=== PATIENT | male | born 1955 | race Caucasian/White ===

== ENCOUNTER 2021-12-07 09:00 | Outpatient (RCR) | payer MEDICARE, BC, SELFPAY ==
--- NOTE | 2021-11-23 10:40 | PT.OPDNX ---
PT [place] Out[facility] Daily Note PT [facility] Outpatient Daily Note Start: 11/23/21 07:57 Freq: Status: Active Protocol: Document 11/23/21 07:58 ASHLEY (Rec: 11/23/21 08:07 NMK [id number]) E-Signed By Laureano Simpson DPT PT OP Daily Progress Note Visit Information Note Type Daily Note,Recert/Progress Note Visit Number [id number] Insurance Information Recert Due Date 12/01/21 Insurance Name Medicare B Medical Diagnosis L shoulder arthroscopic RCR revision following prior full open RCR Treating Diagnosis Decreased shoulder ROM; Decreased shoulder strength; Shoulder weakness; Shoulder effusion Referring Nader Rodriguez MD Subjective Subjective He reports the progress has been slow with the strengthening. He does have some achiness and soreness at this time but denies pain. He is doing his exercises every other day. He reports they are slowly getting easier. Overall he reports he is seeing good progress with strength and ROM, and having minimal pain at this time. Precautions Treatment Precautions/Contraindications PROM starting now, AAROM 4-6 weeks post op. No active range of motion until 8-10 weeks postop. No lifting operative extremity beyond coffee cup in weight. Home Exercise Home Exercise Comments [email or web address] access code: [email or web address] Objective Other/Pertinent Objective ROM w. dowel in standing Shoulder flexion: 140 degrees Shoulder abduction: 125 degrees Shoulder ER: 55 degrees AROM Shoulder flexion: 114 degrees (140 degrees after shoulder flexion wall stretch) Shoulder abduction: 115 degrees Shoulder ER: 70 degrees Patient Instructed in Risks/Benefits Yes Therapeutic Exercise Therapeutic Exercise Minutes (minutes) 45 Therapeutic Exercise: To Restore -Recumbent bike x5 minutes; Functional Status Medium resistance -Standing shoulder flexion w. 2 lb DB 2x8-12 -Standing lateral raise w. 1 lb DB 2x8-12 -Scaption raises w. 1-2 lb DB 2x8-12 -Banded shoulder extension 2x12 -Banded ER 2x12 w. orange tube band -Banded IR 2x12 w. orange tube band -Crista's: scaption, abduction , flexion x5 minutes -HEP prep and review Treatment Minutes Timed Code Treatment Minutes 45 Total Treatment Time 45 Assessment/Impression Assessment/Impression Pt continues to show reduced strength and ROM in his L shoulder compared to R shoulder at this time but is making steady progress towards his current goals. He has not achieved his PT goals at this time. In session, he continues to show good response to ROM and strengthening exercises, showing improved overhead ROM from pre to post ROM exercises . He continues to be diligent with his HEP at this time, but requires progression of these exercises from week to week. He will greatly benefit from continued skilled PT services in order to achieve PLOF goals as outlined in PT plan of care. Plan of Care Physical Therapy Goals Short term goals to completed in 4 weeks: 1. Pt will display improved shoulder flex and ABD passive ROM >160 deg to progress to active and active assist ROM phase of rehab. 2. Pt will report waking up fewer than 2 times per night to show improved quality of sleep Long-term goals to be completed in 16 weeks: 1. Pt will be independent and compliant with HEP to self manage condition after discharge 2. Pt will display improved shoulder ABD, flex, ER and IR strength of >4/5 to lift objects into overhead cabinets . 3. Pt will display improved shoulder flex and ABD AROM > 160 deg to don/doff overhead shirts. 4. Pt will report >75% improvement in SPADI questionnaire to significantly improve tolerance to daily activities Daily Plan of Care Continue per POC Daily Plan of Care Comments Begin strengthening Continue with ROM Recertification Information Clinical Certification # #[id number] Patient's H.I.C.N.# # Initial Certification Date 12/01/21 Most Recent Visit 11/23/21 Recertification Start Date 12/01/21 Recertification Due Date 03/03/22 Reasons to Continue Skilled Therapy Pt continues to show reduced strength and ROM in his L shoulder compared to R shoulder at this time but is making steady progress towards his current goals. He has not achieved his PT goals at this time. In session, he continues to show good response to ROM and strengthening exercises, showing improved overhead ROM from pre to post ROM exercises . He continues to be diligent with his HEP at this time, but requires progression of these exercises from week to week. He will greatly benefit from continued skilled PT services in order to achieve PLOF goals as outlined in PT plan of care. Rehabilitation Potential Good. Continued Plan of Care and Interventions Continued Strengthening and progression of ROM exercises I Certify That I Have Established All Therapy Services/Plan Therapist Signature & License Number Laureano Calvin[place] DPT [id number] Physician Signature Shows Agreement Dates & Medical Necessity Physician Comment/Change Comment or Changes Physician Signature & Date Please Sign/Date Here Physician NPI Number #
== END 2022-02-06 14:11 | disposition home or self-care (01) ==
PROVIDERS: Visit Provider Physician Assistant Surgical
DX: M25.512 Pain in left shoulder (principal)
CPT/HCPCS: 97110

== ENCOUNTER 2021-12-09 09:08 | Outpatient (CLI) | payer MEDICARE, BC, SELFPAY | END 2021-12-09 09:09 | disposition home or self-care (01) | LOC: NFLDREF 09:11 | PROVIDERS: Visit Provider Family Medicine | DX: Z00.00 Encounter for general adult medical examination without abnormal findings (principal); E78.5 Hyperlipidemia, unspecified; R53.83 Other fatigue | CPT/HCPCS: 84443 ==

== ENCOUNTER 2021-12-23 08:51 | Outpatient (CLI) | payer MEDICARE, BC, SELFPAY | END 2021-12-23 08:52 | disposition home or self-care (01) | LOC: RAD 08:52 | PROVIDERS: PCP Family Medicine; Visit Provider Family Medicine | DX: R01.1 Cardiac murmur, unspecified (principal); I34.0 Nonrheumatic mitral (valve) insufficiency | CPT/HCPCS: 93306; 93320; 93325 ==

== ENCOUNTER 2022-05-12 10:09 | Outpatient (CLI) | payer MEDICARE, BC, SELFPAY ==
[2022-05-12 11:10] LABS: Chloride* 107 mmol/L (96-114); Potassium* 4.7 mmol/L (3.6-5.1); Sodium* 140 mmol/L (135-149)
[2022-05-12 11:13] LABS: Blood Urea Nitrogen* 21 mg/dL (7-30); Carbon Dioxide* 25 mmol/L (20-32); Creatinine* 1.1 mg/dL (0.5-1.5); Estimated Glomerular Filt Rate 73 ml/min; Glucose* 97 mg/dL (60-115)
[2022-05-12 11:14] LABS: Calcium* 9.9 mg/dL (8.4-10.6)
== END 2022-05-12 10:10 | disposition home or self-care (01) ==
LOC: NFLDREF 10:10
PROVIDERS: PCP Family Medicine; Visit Provider Family Medicine
DX: Z01.818 Encounter for other preprocedural examination (principal)
CPT/HCPCS: 80048

== ENCOUNTER 2022-05-31 07:21 | Day surgery (SDC) | payer MEDICARE, BC, SELFPAY ==
[2022-05-31] VITALS (21 sets, daily range): BP systolic 74–132; BP diastolic 40–98; PULSE 62–93; RESP 14–20; TEMP 36–36.8; O2SAT 88–94; BMI 31.9
[2022-05-31] MEDS: LACTATED RINGERS 1000 ML 1,000 ML 100 ML IV ×2 (08:05→12:18)
[2022-05-31] MEDS: SODIUM CHLORIDE 0.9 % (FLUSH) 10 ML SYRINGE IVF (08:05)
--- NOTE | 2022-05-31 08:28 | SUR.PREOP ---
TIME?OUT:?0828 PT/RN/MDA?VERIFICATION?OF?SURGICAL?SITE,?PROCEDURE,?AND?CONSENT OBTAINED?PRIOR?TO?INVASIVE?PROCEDURE.
[2022-05-31] MEDS: MIDAZOLAM HCL 1 MG/ML inj IVP (08:30)
[2022-05-31] MEDS: fentaNYL 100 MCG/2 ML inj IVP (08:30)
[2022-05-31] MEDS: EPINEPHrine 1 MG in SODIUM CHLORIDE IRRIG SOLUTION 3,000 ML 9003 MG IRRIGATION ×6 (09:27→11:09)
--- NOTE | 2022-05-31 11:28 | P.ORPRC_ITS ---
Procedure Note Date of procedure: 05/31/22 Procedure: PREOPERATIVE DIAGNOSES: 1. Right shoulder chronic, retracted, irrepairable rotator cuff tear, massive (supraspinatus and infraspinatus both with moderate-severe fatty atrophy - Goutallier grade III) 2. Right shoulder subscapularis rotator cuff tear with retraction, chronic 3. Right shoulder anterior and superior labral degenerative fraying and tearing 4. Right shoulder long head of biceps high-grade partial-thickness tearing 5. Right shoulder grade 3 anterior superior glenoid with small chondral flaps (measuring 6 mm in diameter) POSTOPERATIVE DIAGNOSES: 1. Right shoulder chronic, retracted, irrepairable rotator cuff tear, massive (supraspinatus and infraspinatus both with moderate-severe fatty atrophy - Goutallier grade III) 2. Right shoulder subscapularis rotator cuff tear with retraction, chronic 3. Right shoulder anterior and superior labral degenerative fraying and tearing 4. Right shoulder long head of biceps high-grade partial-thickness tearing 5. Right shoulder grade 3 anterior superior glenoid with small chondral flaps ( measuring 6 mm in diameter) NAME OF OPERATION: 1. Right shoulder arthroscopic rotator cuff repair. 2. Right shoulder arthroscopic Superior Capsular Reconstruction (Bankart repair/reconstruction) - modifier 22 due to extensive capsular disruption involving the entire anterior, superior, and posterior glenohumeral joint (superior capsular reconstruction with allograft tissue). 3. Right shoulder arthroscopic extensive glenohumeral debridement 4. Right shoulder arthroscopic lysis of adhesions SURGEON: Nader Sifuentes MD GLASS CLEANING MACHINE TENDER: Marco Michael PA-C; Of note, a skilled nurse assistant was critical for this case to aide in patient positioning, arm positioning, suture manipulation, graft preparation, instrument positioning, and closure. ANESTHESIA: General plus preoperative supraclavicular block. EBL: Less than 50 mL IMPLANTS: Arthrex 1.8 mm knotless fiber tack (x3) - glenoid fixation [2.6 mm FiberTak RC 0 (x3)-humeral head medial row fixation 5.5 mm BioComposite SwiveLock suture anchor (x2) - humeral head lateral row fixation 3 mm thick dermal matrix allograft for the SCR COMPLICATIONS: None evident INDICATIONS: The patient is a pleasant, 67-year-old male who remains very active individual. They sustained a right shoulder injury in the remote past. The patient has had a history of right shoulder subacromial decompression distal clavicle excision in the remote past as well. Unfortunately, they continued to have significant dysfunction with daily life. Pain, weakness, and dysfunction were part of their daily recreational and occupational activities. Workup inc luded physical exam and MRI which revealed full-thickness supraspinatus and infraspinatus rotator cuff tear with retraction medial to the glenoid and notable muscle fatty atrophy. There is also was subscapularis tear. Given the atrophy, it was not felt that a rotator cuff repair would be viable. As the patient's age is still relatively young and the remain rather active, it was felt that a reverse shoulder replacement would not be prudent. Thus, decision was made for superior capsular reconstruction with allograft. Risks, benefits, alternatives were discussed in great detail. I believe all questions were answered. Surgery was indicated accordingly. FINDINGS: Exam under anesthesia revealed stable shoulder with excellent range of motion. The diagnostic arthroscopy revealed [grade 3 chondromalacia anterior superior glenoid as noted above. The Subscapularis tendon was torn broadly with retraction medial to the coracoid. The long head of the biceps tendon was torn and high-grade partial-thickness manner through the intra-articular portion. The superior rotator cuff tendon was found to be torn full-thickness with retraction medial to the glenoid. The labrum was degeneratively frayed in the anterior and superior aspects. No loose bodies were identified within the pouch and/or subscapularis recess. PROCEDURE: Following a thorough discussion of risks, benefits, and a lternatives, consent was obtained and the left shoulder was marked. The patient was brought to the operating room and placed supine on the operating table. Induction of anesthesia was completed after preoperative supraclavicular block was administered in preop holding. Appropriate time out was performed identifying proper patient, site, and procedure. 2 g IV Ancef was administered within 1 hour of incision preoperatively. The right upper extremity was prepped and draped in the appropriate sterile fashion using ChloraPrep prep. This was after the patient was positioned in the beach chair with their head in neutral alignment and all bony prominences well padded. The shoulder was insufflated with 20mL of normal saline via an 18g spinal needle from a posterior approach. An 11 blade skin incision allowed a blunt trochar to be inserted and diagnostic arthroscopy to be performed with the findings as noted above. An anterior portal was established with an outside in technique. This allowed the probe to be inserted and confirm the diagnostic arthroscopic findings. Additionally, the superior rotator cuff and anterior/superior/posterior capsule was manipulated and mobilization assessed to learn if capsule repair/rotator cuff repair could be possible. This was not possible despite extensive lysis of adhesions. The shaver was then inserted and allowed extensive glenohumeral debridement distinctly separate and different from the lysis of adhesions that was previously performed to help mobilize the subscapularis rotator cuff tissue and to assess the superior rotator cuff tissues excursion. The debridement of anterior, superior, and posterior superior labrum as well of the humeral head and glenoid articular tissue was also debrided along with the biceps stump. Finally rotator cuff stump tissue on the humeral head and on the superior and posterior glenoid was completed. 45 min was spent debriding the shoulder preparing it for the superior capsular reconstruction and rotator cuff repair. Following this, a decision was made to avoid any further SAD/Distal Clavicle Excision given the risk for anterior superior escape should this fail. This has previously been performed and was felt to be adequate. Additionally, there is a risk for the patient's anterior superior escape without rotator cuff tissue/capsular tissue. As attempted mobilization of the capsular tissue proved repair was not feasible, a decision was made for the superior capsular reconstruction with marginal convergence to the infraspinatus and subscapularis remnant tissue that could be captured. Using an all-arthroscopic technique, suture anchors were placed along the superior border of the glenoid including the posterior superior, direct superior, and anterosuperior (base of the coracoid). This had excellent purchase in strength of the anchors. Following this, 3 medial row anchors were placed along the humeral head given the breath of the tear from the subscapularis all way back to the teres minor. Suture management was critical during this stage requiring multiple assistance to help with visualization, suture management, graft preparation, and shoulder manipulation. A dermal allograft was fashioned on the back table and cut after making the appropriate measurements from anchor to anchor. 5 mm extra was left along the medial, anterior, and posterior borders, and 12 mm extra was left along the lateral border for eventual footprint compression against the greater tuberosity with the double row repair. The graft was taken to the operative field and suture limbs from the previously inserted anchors were retrieved through single lateral cannula. 1st, the medial row humeral head anchors were passed along the lateral portion of the graft, followed by the glenoid anchors passed along the medial row with the scorpion in a horizontal mattress fashion. These were then shuttled and cinched down with the graft being pulled into the shoulder joint. A [place] was also utilized to help push the graft in not relying purely on the sutures for pulling. Tension was taken out of the sutures and completion of the medial fixation was confirmed. After spreading of the graft in the subacromial space, the subscapularis anchor eyelet sutures were passed through the anterior portion the graft to provide marginal convergence. Likewise, posterior marginal convergence sutures were passed through any remnant infraspinatus/teres minor tissue. Thereafter, the lateral row anchors had the fiber tapes divided and 1 from each anchor was then passed. Likewise, a tail from each of the tapes in the medial row were passed through an anterolateral anchor with excellent securing the of the dermal allograft. The superior capsular tissue was restored with this allograft, and reduction of the superior subluxation of the humeral head achieved. In fact, axial load to the humerus was performed with an appropriate trampoline effect helping reduce/stabilize the humeral head. Of note, Prior to anchor route driver salesperson removal, the eyelet sutures were tugged on for each anchor and found that the anchor had excellent stability within the bone. Finally, marginal convergence suture was placed repairing the anterior rotator interval tissue/rotator cuff remnant tissue to the anterior edge of the dermal allograft. The shoulder was placed through range of motion and found to be stable. The rotator cuff and capsular allograft tissue was re-probed and found to be stable. Instruments were removed. Excess fluid was drained, closure performed with 4- 0 Monocryl and Steri-Strips. Dressings were applied. Sling was applied. The patient was awoken from anesthesia and transferred to the PACU in stable condition. A skilled nurse assistant was critical for this case to aid in patient positioning, limb positioning, skill to manipulate arthroscopic instruments and camera, suture management, patient safety, and closure. PLAN: 1. Elbow, forearm, wrist and digit range of motion as tolerated. 2. Encouraged ice. 3. Percocet for pain as needed. 4. Sling at all times except for ROM and showering. 5. Follow up with PA visit in 1-2 weeks for wound check. Initiate physical therapy following that visit for passive range of motion. Initiate active assisted range of motion at 4-6 weeks. PT will be a slow, long process allowing time for the graft to incorporate into the bone. May do pendulums now. Again, this procedure was much more than just a typical rotator cuff repair or Bankart repair. Instead, it required extensive glenohumeral debridement, lysis of adhesions, allograft preparation, 3 glenoid anchors and 5 humerus anchors due to the breath of pathology, and given the multiple sutures, multiple assistants were also necessary to help with management. 33% added difficulty for this case due to the above factors.
--- NOTE | 2022-05-31 12:54 | W.ANESCHARGE ---
Anesthesia Charges Start Date/Time Anesthesia Start Date: 05/31/22 Anesthesia Start Time: 08:45 Stop Date/Time Anesthesia Stop Date: 05/31/22 Anesthesia Stop Time: 11:37 Summary Emergency: No
--- NOTE | 2022-05-31 13:09 | P.NB_ITS ---
Nerve Block Nerve Block Time Seen by Provider: 07:45 Date Seen: 05/31/22 Type of block requested by surgeon for post-operative analgesia: supraclavicular Side: right Time out performed: Yes Verification of patient name: Yes Verification of date of : Yes Site marking: site marked Name of person performing procedure: ken Continuous monitoring Was continuous monitoring of O2 sat, B/P, nurse monitoring, recorded every 15 minutes?: Yes Procedure Checklist: sterile prep, needles and gloves Ultrasound guided. Images saved: Yes Medications given in 5ml increments after negative aspiration: Ropivicaine %: 0.5 mL: 20 Needle gauge: 20 Decadron (mg): 10 Precedex (mcg): 25 Patient tolerated procedure well: Yes Block Charges Block Charge (with Pro Fee): Brachial Plexus Use of Ultrasound Machine for Block: Yes- US Guidance/pain block
== END 2022-05-31 14:45 | disposition home or self-care (01) ==
PROVIDERS: PCP Family Medicine; Visit Provider Orthopaedic Surgery Sports Medicine
PROC: (CPT 29805; principal; 2022-05-31 08:30)
DX: M75.121 Complete rotator cuff tear or rupture of right shoulder, not specified as traumatic (principal); S46.111A Strain of muscle, fascia and tendon of long head of biceps, right arm, initial encounter; S43.431A Superior glenoid labrum lesion of right shoulder, initial encounter
CPT/HCPCS: 29827; 29806; 29823; 29825; 01630; 64415; 76942; C1713; C1781; J0171; J0330; J1100; J2250; J2370; J2405; J2704; J2795; J3010; J3490; J7120; L3670

== ENCOUNTER 2022-09-13 09:15 | Outpatient (RCR) | payer MEDICARE, BC, SELFPAY ==
--- NOTE | 2022-06-14 08:17 | PT.OPEX ---
PT [place] Outpatient Eval PT [facility] Outpatient Eval Start: 06/14/22 07:08 Freq: Status: Active Protocol: Document 06/14/22 07:11 BASSAM (Rec: 06/14/22 08:10 BASSAM [id number]) E-signed By Lakshmi Lugo PT Physical Therapy Outpatient Evaluation Insurance Information Recert Due Date 09/08/22 Insurance Name Medicare B Medical Diagnosis Rt RCR 05/31/22 Treating Diagnosis Rt shoulder/UE weakness, impaired mobility, pain Reduced ease of self cares and ADL's Referring MD Dr Nader Sifuentes Subjective Subjective Jordy reports having his shoulder repaired twice on both sides. This is his 4th surgery. He states the surgery went well. Client states he has had initially work injuries starting his deficits on Rt side, unsure of Lt side - overuse possibly.His Rt shoulder had been bothering him intermittently, and progressively worse, for the past 3 years. Right now, P/O, it feels more like just a discomfort. He has been using ice 24/ for the first 3 days, now just 3X/Day (advised to increase to 6 times). Sleeping is good already. In a chair for the first 4 days, in bed last night and actually was not bad. As far as medication, taking 2 aleve in the morning , no longer taking any other pain meds. Denies BISHOP, denies N /T into arm. Sometimes in the sling, my hand gets numb. Does not last. Appetite back to normal, some constipation initially, but back to normal/ good now. Pain Comments very low/tolerable. Date of Last Physician Visit 05/31/22 Current Work Status Retired Occupation Retired from farming, driving truck, [employer]. Preferred Name Yashira Precautions Treatment Precautions/Contraindications Heart [place] prior Rt knee menisectomy total of 4 shoulder surgeries Arthritis Therapy Limitations/Systems Review Vision,Hearing Objective Range of Motion Rt involved shoulder AROM is not allowed per p/o protocal until 5-6 weeks post op Rt involved PROM is : FF 0-110 / ABD 0-92 / ER 0-56 / Strength NA per post op restrictions. Lifting restriction of no more than a coffee cup at waist/ chest level Swelling Low to moderate. He has been icing Palpation Generalized tenderness Full Rt shoulder Balance & Gait Rt arm in a sling at arrival to clinic Posture Slight Rt shoulder elevation and gaurded posture Other/Pertinent Objective CX AROM is WNL, some pain with end range ROT Assessment Assessment/Impression 67 yo male with DX of Rt RCR completed on 05/31/22. He is restricted, per referral, to lifting no more than 1-2# - the weight of a coffee cup, for 5-6 weeks. At that time ( to 07/12/22) can initiate AAROM. He presents with slightly gaurded posture; slight elevation and protraction Rt side. His portal sites/incisions are closed, no drainage and only slight pink discoloration. He is IND in don/doff zip front shirt and sling. He is IND in bed mob. PROM Rt involved shoulder FF 0-110, ABD 0-92, ER 0-56 deg. He reports having only minimal discomfort with passive range. Good CX AROM. He has had 4 total shoulder surgeries, is already performing codmans, wrist and forearm AROM. Client will benefit from continued skilled physical therapy to complete PROM/AAROM/AROM and strength progression per protocal. Educate in posture and body mechanics. Thank you for this referral. Plan of Care Rehabilitation Potential Good Physical Therapy Goals In 4-6 weeks, Jordy will be able to: 1. PROM WFL with only slight tightness at end feel 2. Posture of symmetric shoulder height and scapular positioning 3. Sleeping up to 4 hours without awakening due to shoulder pain greater than 3/ 10 75% of the time. 4. IND dressing and self cares In 12-14 weeks, Jordy will be able to: 1. AROM WFL 2. Lift/carry up to 15# at waist/chest level (light grocery bag, light house/yard work) 3. Don/doff clothing without water well driller movements or accessory mm overuse 4. IND in entire HEP with emphasis on pace, reps, alignment and HOLD times 5. MMT 5/5 in neutral position Rt shoulder 6. Prolonged repetitive use of Rt UE up to 15 min without increase symptoms LTG/clients personal goal: 1. 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 Coordination/Communication With Referral Source Treatment Plan/Direct Interventions Ice/Cold/Vasopneumatic,Joint Mobilization,Manual Therapy, Neuromuscular Re-ed,Self-Care/ Home Management,Therapeutic Activities,Therapeutic Exercises Frequency/Duration 1X/Wk for 3 months, established/modified per physician f/u Patient Will Be Discharged From Therapy Completion of LTG(s),Skills Plateau,Independent w/HEP, Independently Progressing Evaluation Billing Untimed Code Treatment Minutes 22 Complexity Moderate Certification Information Initial Certification Date 06/14/22 Ending Certification Date 09/08/22 Provider Signature Shows Agreement With POC & Medical Necessity Physician Signature & Date Requested Please Sign/Date Here Physician Comment/Change : Physician NPI Number #
== END 2022-11-09 09:15 | disposition home or self-care (01) ==
PROVIDERS: PCP Family Medicine; Visit Provider Physician Assistant Surgical
DX: Z98.890 Other specified postprocedural states (principal); Z51.89 Encounter for other specified aftercare
CPT/HCPCS: 97110; 97140; 97162